=== PATIENT | female | born 1965 | race Caucasian/White ===

== ENCOUNTER 2017-03-22 16:28 | Emergency (ER) | payer MEDICAID ==
[2017-03-22 16:38] VITALS: TEMP 97.9
--- NOTE | 2017-03-22 16:40 | EDPHY ---
H & P Stated Complaint: Chest pain. Time Seen by Provider: 03/22/17 16:39 HPI/ROS: CHIEF COMPLAINT: Chest pain, presyncope HISTORY OF PRESENT ILLNESS: The patient presents to the ED with complaints of chest pain and presyncope that began while she was being evaluated her primary care provider's office. The patient reportedly described a left-sided chest pain which was pleuritic in nature. It continues to persist. She denies asymmetric calf pain or swelling. She has chronic pain in her right foot secondary to RSD. She denies any right calf pain or swelling. The patient denies prior history of cardiac history. The patient has had a history of intermittent presyncope since the of her a year ago. She denies any workup of this condition. The patient is currently homeless. The patient denies recent fever, cough or congestion. REVIEW OF SYSTEMS: A comprehensive 10 point review of systems is otherwise negative aside from elements mentioned in the history of present illness. Source: Patient Exam Limitations: No limitations - Personal History Tetanus Vaccine Date: < 10 YEARS - Medical/Surgical History Hx Asthma: No Hx Chronic Respiratory Disease: No Hx Diabetes: No Hx Cardiac Disease: No Hx Renal Disease: Yes Hx Cirrhosis: No Hx Alcoholism: No Hx HIV/AIDS: No Hx Splenectomy or Spleen Trauma: No Other PMH: Medical-RSD R foot, chronic pain, UTIs, kidney stones, depression. Surgical- Tubal Ligation, Phyllis, Appy - Social History Smoking Status: Light smoker - Physical Exam Exam: General Appearance: Alert, no distress Eyes: Pupils equal and round no pallor or injection ENT, Mouth: Mucous membranes moist Respiratory: There are no retractions, lungs are clear to auscultation Cardiovascular: Regular rate and rhythm Gastrointestinal: Abdomen is soft and nontender, no masses, bowel sounds normal Neurological: A&O, normal motor function, normal sensory exam, normal cranial nerves Skin: Warm and dry, no rashes Musculoskeletal: Neck is supple nontender Extremities: symmetrical, full range of motion Constitutional: Initial Vital Signs Temperature (C) 36.6 C 03/22/17 16:36 Heart Rate 102 H 03/22/17 16:36 Respiratory Rate 20 03/22/17 16:36 Blood Pressure 121/84 H 03/22/17 16:36 O2 Sat (%) 90 L 03/22/17 16:36 O2 Delivery Mode Room Air Allergies/Adverse Reactions: No Known Allergies Allergy (Verified 08/07/14 16:25) Home Medications: Medication Instructions Recorded Albuterol Sulfate Hfa 09/28/13 Lyrica 09/28/13 Pregabalin 09/28/13 Trazodone HCl 09/28/13 Venlafaxine HCl ER 09/28/13 Ibuprofen [Motrin (*)] 600 mg PO Q6 #15 tab 08/07/14 morphINE IR 08/07/14 Medical Decision Making - Diagnostics EKG Interpretation: EKG: Complete interpretation has been separately recorded in the [employer] archive. Summary impression: Sinus rhythm ED Course/Re-evaluation: The patient presents to the ED with complaints of sharp left-sided pleuritic chest pain. The patient reports she has had a 1 year history of intermittent presyncope. She denies any acute headache, numbness or weakness. The patient was noted to be neurologically intact. Her vital signs are stable. The patient has no risk factors for coronary artery disease. Database in the emergency department consisted of an EKG which demonstrates no evidence of an injury pattern. The patient's troponin is normal. The patient has a negative D-dimer which I feel adequately excludes pulmonary embolism. At this point time I do feel the patient can be discharged home with follow up with Cardiology as an outpatient for further evaluation of her intermittent presyncope. The patient is advised to return to the ED for exertional chest pain, true syncope, acute neurologic symptoms or other acute complaints. Differential Diagnosis: Differential diagnosis considered includes acute coronary syndrome, dehydration , metabolic abnormality, pulmonary embolism - Data Points Laboratory Results: Laboratory Results 03/22/17 16:30 03/22/17 16:30 03/22/17 03/22/17 03/22/17 16:30 16:30 16:30 WBC 11.02 10^3/uL H 10^3/uL (3.80-9.50) RBC 4.66 10^6/uL 10^6/uL (4.18-5.33) Hgb 12.9 g/dL g/dL (12.6-16.3) Hct 40.0 % % (38.0-47.0) MCV 85.8 fL fL (81.5-99.8) MCH 27.7 pg L pg (27.9-34.1) MCHC 32.3 g/dL L g/dL (32.4-36.7) RDW 17.2 % H % (11.5-15.2) Plt Count 303 10^3/uL 10^3/uL (150-400) MPV 9.8 fL fL (8.7-11.7) Neut % (Auto) 58.6 % % (39.3-74.2) Lymph % (Auto) 29.6 % % (15.0-45.0) [place] % (Auto) 10.0 % % (4.5-13.0) Eos % (Auto) 1.1 % % (0.6-7.6) Baso % (Auto) 0.4 % % (0.3-1.7) Nucleat RBC Rel Count 0.0 % % (0.0-0.2) Absolute Neuts (auto) 6.47 10^3/uL 10^3/uL (1.70-6.50) Absolute Lymphs (auto) 3.26 10^3/uL H 10^3/uL (1.00-3.00) Absolute Monos (auto) 1.10 10^3/uL H 10^3/uL (0.30-0.80) Absolute Eos (auto) 0.12 10^3/uL 10^3/uL (0.03-0.40) Absolute Basos (auto) 0.04 10^3/uL 10^3/uL (0.02-0.10) Absolute Nucleated RBC 0.00 10^3/uL 10^3/uL (0-0.01) Immature Gran % 0.3 % % (0.0-1.1) Immature Gran # 0.03 10^3/uL 10^3/uL (0.00-0.10) D-Dimer 0.37 ug/mLFEU ug/mLFEU (0.00-0.50) Sodium 139 mEq/L mEq/L (134-144) Potassium 4.2 mEq/L mEq/L (3.5-5.2) Chloride 103 mEq/L mEq/L (97-110) Carbon Dioxide 23 mEq/l mEq/l (22-31) Anion Gap 13 mEq/L mEq/L (8-16) BUN 11 mg/dL mg/dL (7-23) Creatinine 0.9 mg/dL mg/dL (0.6-1.0) Estimated GFR > 60 Glucose 81 mg/dL mg/dL (70-100) Calcium 9.4 mg/dL mg/dL (8.5-10.4) Troponin I < 0.012 ng/mL ng/mL (0.000-0.034) Departure - Departure Disposition: Home, Routine, Self-Care Clinical Impression: Chest pain Condition: Good Instructions: Chest Pain (ED) Additional Instructions: 1. Based upon the testing done in the Emergency Department today we see no evidence of a heart attack. 2. We are unable to fully exclude coronary artery disease based upon the testing available in the Emergency Department. 3. For this reason, we would like you to be seen by cardiology for consideration of additional testing within the next 3 days. 4. Please contact the construction site manager you have been referred to schedule this appointment as soon as possible. Their offices are typically open from 8:30am- 5pm M-F. 5. Please return to the Emergency Department immediately for any recurrent chest pain, difficulty breathing or other concerns. Referrals: Shravan Alonso MD [Medical Doctor] - As per Instructions
--- NOTE | 2017-03-22 16:41 | CPEKG ---
Heart Rate: 91 RR Interval: 659 P-R Interval: 144 QRSD Interval: 72 QT Interval: 352 QTC Interval: 434 P Temple: 36 QRS Temple: 64 T Wave Temple: 35 EKG Severity - BORDERLINE ECG - EKG Impression: SINUS RHYTHM Electronically Signed By: Buster Brooks 22-Mar-2017 17:59:31
[2017-03-22 17:00] LABS: % IMMATURE GRANULYOCYTES 0.3 % (0.0-1.1); ABSOLUTE IMMATURE GRANULOCYTES 0.03 10^3/uL (0.00-0.10); ADD DIFF? NO; ADD MORPH? NO; ADD SCAN? NO; ATYPICAL LYMPHOCYTE FLAG 10 (0-99); FRAGMENT RBC FLAG 0 (0-99); HEMOGLOBIN 12.9 g/dL (12.6-16.3); LEFT SHIFT FLG 0 (0-99); LIPEMIA HEMOLYSIS FLAG 80 (0-99); MEAN CELL HEMOGLOBIN 27.7 pg (27.9-34.1); MEAN CELL HEMOGLOBIN CONCENTR. 32.3 g/dL (32.4-36.7); MEAN CELL VOLUME 85.8 fL (81.5-99.8); MEAN PLATELET VOLUME 9.8 fL (8.7-11.7); PLATELET CLUMPS FLAG 0 (0-99); PLATELET COUNT 303 10^3/uL (150-400); RED BLOOD CELL COUNT 4.66 10^6/uL (4.18-5.33); RED CELL DISTRIBUTION WIDTH 17.2 % (11.5-15.2)
[2017-03-22 17:10] LABS: ANION GAP 13 mEq/L (8-16); CALCIUM 9.4 mg/dL (8.5-10.4); CARBON DIOXIDE 23 mEq/l (22-31); CHLORIDE 103 mEq/L (97-110); CREATININE 0.9 mg/dL (0.6-1.0); GLOMERULAR FILTRATION RATE > 60; GLUCOSE 81 mg/dL (70-100); POTASSIUM 4.2 mEq/L (3.5-5.2); SODIUM 139 mEq/L (134-144)
[2017-03-22 17:17] VITALS: RESP 18
[2017-03-22 17:22] LABS: TROPONIN I < 0.012 ng/mL (0.000-0.034)
[2017-03-22 18:20] VITALS: BP 100/62; PULSE 89; O2SAT 91
== END 2017-03-22 18:19 | disposition home or self-care (01) ==
LOC: EDUNIT#
DX: R07.9 Chest pain, unspecified (principal); F17.200 Nicotine dependence, unspecified, uncomplicated

== ENCOUNTER → 2017-06-27 | Outpatient (CLI) | payer MEDICAID | LOC: FIMAGING 14:12 | PROVIDERS: ATTEND Family Medicine | DX: Z12.31 Encounter for screening mammogram for malignant neoplasm of breast (principal); Z80.3 Family history of malignant neoplasm of breast | CPT/HCPCS: G0202 ==

== ENCOUNTER 2018-12-12 09:10 | Emergency (ER) | payer MEDICAID ==
[2018-12-12] MEDS ORDERED: NS 1,000 ML IV ONE (09:36)
[2018-12-12] MEDS ORDERED: KETOROLAC 30 MG/1 ML SDV IVP ONE (09:36)
[2018-12-12] MEDS ORDERED: DIAZEPAM 10 MG/2 ML SYR IVP ONE (09:37)
--- NOTE | 2018-12-12 09:42 | EDPHY ---
General Time Seen by Provider: 12/12/18 09:21 Narrative: CLINICAL IMPRESSION: Right flank and right lower quadrant abdominal pain ASSESSMENT/PLAN: 53-year-old homeless female presents to the emergency department with 1 week of atraumatic right flank and right lower quadrant abdominal pain. Patient has had previous appendectomy and cholecystectomy. She reports a history of kidney stones although urine in the emergency department has no hematuria, bacteriuria , or pyuria. I do not suspect acute UTI or pyelonephritis. Given lack of hematuria, CT abdomen pelvis with contrast was obtained. Radiologist has read this showing no evidence of nephrolithiasis, ureterolithiasis, hydronephrosis, pyelonephritis. Patient has chronic unchanged left renal atrophy. Otherwise constipation without other acute abnormality. Labs reassuring with mild leukocytosis of 12, no renal insufficiency, electrolyte imbalance or metabolic disturbance. Ovarian atrophy also noted on CT, no clinical concern for ovarian torsion. Patient denies any abnormal discharge, declined pelvic exam. She takes regular narcotic pain medication and I advised follow-up with primary care in the next 24 hr to recheck. Warning signs return to ED sooner discussed and discharge. DIFFERENTIAL DX: Ddx includes but not limited UTI, pyelonephritis, nephrolithiasis, ureterolithiasis, urosepsis, SBO, infection, ovarian cyst, ovarian torsion ED PROCEDURES: See lab and/or imaging results below ED COURSE: 10:50 a.m.: Patient reassessed, labs reviewed. No evidence of urinary tract infection, hematuria. No renal insufficiency. Mild leukocytosis. Patient is still laying on her left side and sleeping when I enter the room, awakes and begins whimpering stating that "the pain is just so bad". Again, subjective complaint of pain seems out of proportion to exam findings. CT with contrast ordered given lack of hematuria. Will order a small dose of IV analgesics. 11:40 a.m.: CT results discussed with Dr. Sims. No evidence of nephrolithiasis, ureterolithiasis, hydronephrosis, pyelonephritis. Chronic unchanged left renal atrophy. Patient is status post appendectomy. Constipation noted. CHIEF COMPLAINT: Right flank and right lower quadrant pain HPI: 53-year-old female presents to the emergency department with approximately 1 week of right flank and right lower quadrant abdominal pain. Patient reports the pain began in the right lower quadrant of the abdomen and then moved to the right flank. She now states she has pain even laying on her back. No associated fever, chills, anorexia, nausea, vomiting, diarrhea. She has had prior cholecystectomy and appendectomy. She reports frequent UTIs and states she is having urinary frequency, urgency and some dysuria. No visible blood. She states this does feel like prior kidney stones. She took her regularly prescribed morphine prior to arrival. She is followed by [facility]. She is currently homeless PAST MEDICAL HISTORY: Depression, RSD, chronic pain, urinary tract infections, nephrolithiasis See nurse/triage notes for additional history if applicable Pertinent Past Surgical History: Tubal ligation, cholecystectomy, appendectomy Family History: None reported Social History: Everyday smoker, homeless REVIEW OF SYSTEMS: All other systems negative Constitutional: No fever, no chills, denies appetite change. Cardiovascular: No chest pain, no palpitations. Respiratory: No cough, no shortness of breath. Gastrointestinal: Positive for abdominal pain, denies nausea, no vomiting, diarrhea. Genitourinary: No hematuria, positive for dysuria, frequency, urgency, and right-sided flank pain, pelvic pain Musculoskeletal: No back pain, joint swelling, joint pain, myalgias. Skin: No rashes, color change. PHYSICAL EXAM: General Appearance: Alert, oriented, appropriate, cooperative, laying on her left side, does not appear in significant distress but is tearful with pain out of proportion to exam findings on palpation, NAD, well hydrated, non-toxic appearing, tachycardic, hypertensive no hypoxia. Respiratory: There are no retractions, lungs are clear to auscultation. Cardiac: Regular rate and rhythm, no murmurs or gallops. Gastrointestinal: Abdomen is soft, tender to light palpation of right lower quadrant extending into right flank, subjective complaints of pain seem after proportion to exam findings, bowel sounds normal, no masses/hernia, no rigidity , guarding or focal peritoneal findings. Neurological: [ Alert and oriented x 3, CN 2-12 grossly intact Skin: Warm, dry, no rashes, no nodules on palpation. Musculoskeletal: right sided flank pain to palpation MEDICAL DECISION MAKING: Patient was seen independently. Secondary supervising physician at time of evaluation was Dr. Manuel . Diagnosis: Right flank and right lower quadrant abdominal pain . New, requires workup Summary: See Assessment and Plan for summary of ED visit Clinical lab tests: ordered / reviewed. Independent visualization of images, tracing, or specimens: Yes. Decision to obtain medical records or history from someone other than the patient: No Discussed patient with another provider: Dr. Sims Patient Progress: Stable for discharge. - Diagnostics Imaging Results: Imaging Impressions Abdomen CT 12/12/18 10:50 Impression: 1. No acute intra-abdominal inflammatory process. No hydronephrosis or obstructing ureteral calculi. 2. Moderate constipation. No bowel obstruction. 3. Left nephrolithiasis and moderate left atrophy unchanged. Findings discussed with Emergency Department physician bilingual legal assistant, Chris Lopez Pa-c, on 12/12/2018, 11:41. - History Smoking Status: Current every day smoker - Objective Vital Signs: Initial Vital Signs Temperature (C) 36.6 C 12/12/18 09:16 Heart Rate 115 H 12/12/18 09:16 Respiratory Rate 16 12/12/18 09:16 Blood Pressure 147/96 H 12/12/18 09:16 O2 Sat (%) 90 L 12/12/18 09:16 O2 Delivery Mode Room Air Allergies/Adverse Reactions: No Known Allergies Allergy (Verified 08/07/14 16:25) Home Medications: Medication Instructions Recorded Lyrica 09/28/13 Trazodone HCl 09/28/13 Venlafaxine HCl ER 09/28/13 Ibuprofen [Motrin (*)] 600 mg PO Q6 #15 tab 08/07/14 morphINE IR 08/07/14 Amitriptyline HCl 12/12/18 Laboratory Results: Laboratory Results 12/12/18 09:30 12/12/18 09:30 12/12/18 12/12/18 12/12/18 10:20 09:30 09:30 WBC 12.47 10^3/uL H 10^3/uL (3.80-9.50) RBC 4.73 10^6/uL 10^6/uL (4.18-5.33) Hgb 12.8 g/dL g/dL (12.6-16.3) Hct 40.3 % % (38.0-47.0) MCV 85.2 fL fL (81.5-99.8) MCH 27.1 pg L pg (27.9-34.1) MCHC 31.8 g/dL L g/dL (32.4-36.7) RDW 16.4 % H % (11.5-15.2) Plt Count 370 10^3/uL 10^3/uL (150-400) MPV 9.4 fL fL (8.7-11.7) Neut % (Auto) 70.5 % % (39.3-74.2) Lymph % (Auto) 18.2 % % (15.0-45.0) [place] % (Auto) 10.4 % % (4.5-13.0) Eos % (Auto) 0.4 % L % (0.6-7.6) Baso % (Auto) 0.3 % % (0.3-1.7) Nucleat RBC Rel Count 0.0 % % (0.0-0.2) Absolute Neuts (auto) 8.78 10^3/uL H 10^3/uL (1.70-6.50) Absolute Lymphs (auto) 2.27 10^3/uL 10^3/uL (1.00-3.00) Absolute Monos (auto) 1.30 10^3/uL H 10^3/uL (0.30-0.80) Absolute Eos (auto) 0.05 10^3/uL 10^3/uL (0.03-0.40) Absolute Basos (auto) 0.04 10^3/uL 10^3/uL (0.02-0.10) Absolute Nucleated RBC 0.00 10^3/uL 10^3/uL (0-0.01) Immature Gran % 0.2 % % (0.0-1.1) Immature Gran # 0.03 10^3/uL 10^3/uL (0.00-0.10) Sodium 134 mEq/L L mEq/L (135-145) Potassium 4.8 mEq/L mEq/L (3.5-5.2) Chloride 101 mEq/L mEq/L (97-110) Carbon Dioxide 21 mEq/l L mEq/l (22-31) Anion Gap 12 mEq/L mEq/L (6-14) BUN 9 mg/dL mg/dL (7-23) Creatinine 0.6 mg/dL mg/dL (0.6-1.0) Estimated GFR > 60 Glucose 127 mg/dL H mg/dL (70-100) Calcium 9.5 mg/dL mg/dL (8.5-10.4) Urine Color PALE YELLOW Urine Appearance CLEAR Urine pH 7.0 (5.0-7.5) Ur Specific [place] 1.003 (1.002-1.030) Urine Protein NEGATIVE (NEGATIVE) Urine Ketones NEGATIVE (NEGATIVE) Urine Blood NEGATIVE (NEGATIVE) Urine Nitrate NEGATIVE (NEGATIVE) Urine Bilirubin NEGATIVE (NEGATIVE) Urine Urobilinogen NEGATIVE EU EU (0.2-1.0) Ur Leukocyte Esterase NEGATIVE (NEGATIVE) Urine RBC 1-3 /hpf /hpf (0-3) Urine WBC 1-3 /hpf /hpf (0-3) Ur Epithelial Cells TRACE /lpf /lpf (NONE-1+) Urine Glucose NEGATIVE (NEGATIVE) Medications Given: Discontinued Medications Diazepam (Valium) 2.5 mg IVP EDNOW ONE Stop: 12/12/18 09:38 Last Admin: 12/12/18 09:43 Dose: 2.5 mg Fentanyl (Sublimaze) 50 mcg IVP EDNOW ONE Stop: 12/12/18 10:55 Last Admin: 12/12/18 11:05 Dose: 50 mcg Sodium Chloride (Ns) 1,000 mls @ 0 mls/hr IV EDNOW ONE; Wide Open PRN Reason: Protocol Stop: 12/12/18 09:37 Last Admin: 12/12/18 09:43 Dose: 1,000 mls Ketorolac Tromethamine (Toradol) 15 mg IVP EDNOW ONE Stop: 12/12/18 09:37 Last Admin: 12/12/18 09:42 Dose: 15 mg Departure - Departure Disposition: Home, Routine, Self-Care Clinical Impression: Acute right flank pain Abdominal pain Qualifiers: Abdominal location: right lower quadrant Qualified Code(s): R10.31 - Right lower quadrant pain Condition: Good Instructions: Abdominal Pain (ED), Flank Pain (ED) Additional Instructions: DISCHARGE INSTRUCTIONS FROM YOUR DOCTOR Thank you for visiting our emergency department today. You were treated by a physician bilingual legal assistant today and your case was reviewed with our ED Attending physician. Please keep in mind that discharge from the emergency department does not mean that there is nothing wrong - it simply means that we have not identified an emergency condition that requires further evaluation or treatment in the hospital. You should always plan to follow up with primary care for re- evaluation of your condition in the next 2-3 days. If you have been referred to a specialist, please call as soon as possible (today or tomorrow) to schedule your follow up appointment at the appropriate time. DIAGNOSTIC WORKUP IN THE EMERGENCY DEPARTMENT TODAY INCLUDED LAB WORK, URINE STUDIES, AND CT ABDOMEN AND PELVIS WITH CONTRAST. YOU HAD NO EVIDENCE OF A URINARY TRACT INFECTION OR KIDNEY INFECTION. YOU HAD NO BLOOD IN HER URINE. YOU HAD A VERY MILD ELEVATION IN YOUR INFECTION FIGHTING COUNT TO 12. KIDNEY FUNCTION AND ELECTROLYTES WERE NORMAL. CT SCAN WITH CONTRAST WAS READ BY THE RADIOLOGIST SHOWING NO EVIDENCE OF KIDNEY STONE, KIDNEY INFECTION, INTRA- ABDOMINAL ABSCESS, OR ACUTE SURGICAL PROCESS. YOU DID HAVE SOME CONSTIPATION. YOU RECEIVED IV FENTANYL, TORADOL, AND ZOFRAN WELL A L OF FLUIDS. PLEASE FOLLOW-UP WITH HER PRIMARY CARE DOCTOR IN 24 HR TO RECHECK. RETURN TO THE EMERGENCY DEPARTMENT FOR SEVERE OR WORSENING ABDOMINAL PAIN, FEVER OR CHILLS, PERSISTENT VOMITING, TROUBLES URINATING, OR ANY OTHER CONCERN. People present with illnesses and injuries in different ways, and it is always possible that we have missed something. You may always return for re-evaluation if symptoms worsen or if they are not improving or if you develop new/different symptoms. Again, thank you for choosing our emergency department. We hope that you feel better. Referrals: Abel Mccarthy MD [Primary Care Provider] - 2-3 days, if not improved
[2018-12-12 09:52] LABS: PLATELET COUNT 370 10^3/uL (150-400)
[2018-12-12] MEDS ORDERED: fentaNYL 100 MCG/2 ML INJ IVP ONE (10:54)
[2018-12-12] MEDS ORDERED: IOPAMIDOL (ISOVUE-300) 100 ML BTL ONE (11:05)
[2018-12-12 12:16] VITALS: BP 119/86
== END 2018-12-12 12:16 | disposition home or self-care (01) ==
DX: R10.31 Right lower quadrant pain (principal); N20.0 Calculus of kidney; K59.00 Constipation, unspecified; Z90.49 Acquired absence of other specified parts of digestive tract; Z90.89 Acquired absence of other organs
CPT/HCPCS: 96374; J1885; J3010; J3360; Q9967